=== PATIENT | female | born 1990 | race African-American/Black ===

== ENCOUNTER 2024-11-04 16:27 | Emergency (ER) | payer OTHER ==
[~2024-11-04] VITALS: Ht 154.9 cm; Wt 58.6 kg
[2024-11-04 16:35] VITALS: TEMP 98.1
[2024-11-04] MEDS ORDERED: AMLO-257 PO (16:42)
[2024-11-04] MEDS ORDERED: AMLO10TA55 PO (16:45)
[2024-11-04 17:21] LABS: PLATELET COUNT (AUTO) 333 K/uL (150-450); RED BLOOD CELL COUNT(AUTO) 4.39 MIL/uL (4.00-5.20); RED CELL DISTRIBUTION WIDTH 13.2 % (11.5-14.5); WHITE BLOOD COUNT (AUTO) 8.1 K/uL (4.5-11.0)
[2024-11-04 17:37] LABS: CALCIUM, TOTAL 9.4 mg/dL (8.8-10.5); CREATININE 0.65 mg/dL (0.60-1.30); GLOMERULAR FILTR. RATE CALC > 60 mL/min (>60); GLUCOSE,RANDOM 166 mg/dL (70-110); HCG,QUANTITATIVE 2 mIU/mL (0-6); SODIUM SERUM 140 mmol/L (136-145); UREA NITROGEN, BLOOD 9 mg/dL (7-18)
[2024-11-04 17:51] LABS: APPEARANCE,URINE CLEAR (CLEAR); GLUCOSE, URINE (UA) NEGATIVE (NEGATIVE); LEUKOCYTE ESTERASE ,URINE NEGATIVE (NEGATIVE); NITRATE,URINE NEGATIVE (NEGATIVE); OCCULT BLOOD,URINE NEGATIVE (NEGATIVE); SPECIFIC GRAVITIY, URINE 1.004 (1.003-1.030)
[2024-11-04] MEDS: ACETAMINOPHEN 325 MG TABLET PO ONE (19:02)
[2024-11-04 19:03] VITALS: BP 140/88; PULSE 106; RESP 15; O2SAT 99
== END 2024-11-04 19:05 | disposition home or self-care (01) ==
LOC: EMS 16:30
DX: R51.9 Headache, unspecified (principal); E86.0 Dehydration; I10 Essential (primary) hypertension; N89.8 Other specified noninflammatory disorders of vagina; Z79.899 Other long term (current) drug therapy
CPT/HCPCS: 80048; 81003; 83690; 84702; 85025; 99283